=== PATIENT | female | born 1985 | race Caucasian/White ===

== ENCOUNTER → 2017-05-19 | Outpatient (CLI) | payer BC ==
[2015-12-19 15:08] VITALS: BP 153/97
[~2017-05-19] MED LIST: AMOXICILLIN 8751 TAB PO; CLONAZEPAM0.5 MG PO; PORTIA-28 30 MC1 TAB PO; PRILOSEC 20MG20 MG PO; TOPROL XL 50MG50 MG PO
[2017-05-19 17:23] LABS: CLUE CELLS PRESENT (Not Observd)
[2017-05-19 17:31] LABS: URINE APPEARANCE CLEAR; URINE COLOR YELLOW
[2017-05-19 17:32] LABS: URINE BILIRUBIN NEGATIVE (NEGATIVE); URINE BLOOD NEGATIVE (NEGATIVE); URINE GLUCOSE NEGATIVE (NEGATIVE); URINE KETONE NEGATIVE (NEGATIVE); URINE LEUKOCYTE ESTERASE NEGATIVE (NEGATIVE); URINE NITRATE NEGATIVE (NEGATIVE); URINE PROTEIN(semi-quant) NEGATIVE (NEGATIVE); URINE UROBILINOGEN NORMAL (NORMAL); URINE WBC 0-1 /hpf (0-3)
== END ==
LOC: LAB 16:01
PROVIDERS: Nurse Practitioner Family
DX: N76.0 Acute vaginitis (principal); N39.0 Urinary tract infection, site not specified
CPT/HCPCS: Q0111

== ENCOUNTER → 2018-02-02 | Outpatient (CLI) | payer BC ==
[2015-12-19 15:08] VITALS: BP 153/97
== END ==
LOC: RAD 09:58
DX: S62.356A Nondisplaced fracture of shaft of fifth metacarpal bone, right hand, initial encounter for closed fracture (principal)

== ENCOUNTER → 2018-02-05 | Outpatient (CLI) | payer BC ==
[2015-12-19 15:08] VITALS: BP 153/97
[2018-02-05 07:33] LABS: ALBUMIN 4.2 g/dL (3.5-5.0); CALCIUM 9.4 mg/dL (8.4-10.2); POTASSIUM 4.4 mmol/L (3.6-5.0); TOTAL BILIRUBIN 0.6 mg/dL (0.2-1.3); TOTAL PROTEIN 7.9 g/dL (6.3-8.2)
[2018-02-05 08:12] LABS: URINE APPEARANCE CLEAR; URINE BILIRUBIN NEGATIVE (NEGATIVE); URINE BLOOD NEGATIVE (NEGATIVE); URINE COLOR YELLOW; URINE GLUCOSE NEGATIVE (NEGATIVE); URINE KETONE NEGATIVE (NEGATIVE); URINE LEUKOCYTE ESTERASE NEGATIVE (NEGATIVE); URINE MUCUS PRESENT (NOT PRESENT); URINE NITRATE NEGATIVE (NEGATIVE); URINE PROTEIN(semi-quant) NEGATIVE (NEGATIVE); URINE UROBILINOGEN NORMAL (NORMAL); URINE WBC 0-1 /hpf (0-3)
== END ==
LOC: LAB 07:01
PROVIDERS: Family Medicine
DX: Z00.00 Encounter for general adult medical examination without abnormal findings (principal); K59.09 Other constipation

== ENCOUNTER 2018-02-15 10:55 | Emergency (ER) | payer BC ==
[~2018-02-15] VITALS: Ht 157.5 cm; Wt 63.6 kg
[2018-02-15] MEDS ORDERED: NEXIUM20 MG PO (11:00)
[2018-02-15 11:38] LABS: EOS % 0.3 % (1.0-5.0); HEMATOCRIT 41.1 % (37.0-47.0); HEMOGLOBIN 13.1 g/dL (12.5-16.0); LYMPH# 1.9 (1.50-4.00); MEAN CELL VOLUME 91 fl (78-100); MEAN CORPUSCULAR HEMOGLOBIN 29 pg (27-31); MEAN CORPUSCULAR HGB CONC 32 g/dL (33-37); MEAN PLATELET VOLUME 11.1 fl (7.4-10.4); MONO # 0.6 (0.20-0.80); NEU # 4.5 (1.40-6.50); PLATELET COUNT 292 K/mm3 (130-400); RED BLOOD COUNT 4.52 M/mm3 (4.10-5.30); RED CELL DISTRIBUTION WIDTH 12.8 % (11.5-14.5)
[2018-02-15 11:45] LABS: ALBUMIN 4.6 g/dL (3.5-5.0); CALCIUM 9.4 mg/dL (8.4-10.2); POTASSIUM 4.5 mmol/L (3.6-5.0); TOTAL BILIRUBIN 0.6 mg/dL (0.2-1.3); TOTAL PROTEIN 8.1 g/dL (6.3-8.2)
[2018-02-15] MEDS ORDERED: ZOFRAN ODT4 MG PO (13:12)
[2018-02-15] MEDS ORDERED: VALIUM 2MG T2 MG/TAB PO (13:12)
[2018-02-15 14:14] VITALS: BP 123/54
== END 2018-02-15 13:33 | disposition home or self-care (01) ==
LOC: ED 10:55
PROVIDERS: Nurse Practitioner Primary Care
DX: G43.909 Migraine, unspecified, not intractable, without status migrainosus (principal)
CPT/HCPCS: J1885; J2405; J7030

== ENCOUNTER → 2018-04-19 | Outpatient (CLI) | payer BC ==
[~2018-04-19] MED LIST changes: +NEXIUM20 MG PO; +VALIUM 2MG T2 MG/TAB PO; +ZOFRAN ODT4 MG PO
== END ==
LOC: RAD 07:01
DX: R13.10 Dysphagia, unspecified (principal); R14.0 Abdominal distension (gaseous); R14.2 Eructation

== ENCOUNTER → 2018-04-28 | Outpatient (CLI) | payer BC ==
[2018-04-28 15:34] LABS: EOS # 0.1 (0.04-0.40); EOS % 0.7 % (1.0-5.0); HEMATOCRIT 39.5 % (37.0-47.0); HEMOGLOBIN 12.4 g/dL (12.5-16.0); LYMPH# 2.8 (1.50-4.00); MEAN CELL VOLUME 90 fl (78-100); MEAN CORPUSCULAR HEMOGLOBIN 28 pg (27-31); MEAN CORPUSCULAR HGB CONC 31 g/dL (33-37); MONO # 0.7 (0.20-0.80); NEU # 4.6 (1.40-6.50); PLATELET COUNT 268 K/mm3 (130-400); RED BLOOD COUNT 4.39 M/mm3 (4.10-5.30); WHITE BLOOD COUNT 8.1 K/mm3 (4.8-10.8)
== END ==
LOC: LAB 15:12
PROVIDERS: Internal Medicine Gastroenterology
DX: R10.9 Unspecified abdominal pain (principal); R14.0 Abdominal distension (gaseous)

== ENCOUNTER → 2019-03-08 | Outpatient (CLI) | payer BC ==
[2019-03-08 08:58] LABS: EOS # 0.1 (0.04-0.40); EOS % 1.2 % (1.0-5.0); HEMATOCRIT 43.9 % (37.0-47.0); HEMOGLOBIN 13.9 g/dL (12.5-16.0); LYMPH# 2.9 (1.50-4.00); MEAN CELL VOLUME 92 fl (78-100); MEAN CORPUSCULAR HEMOGLOBIN 29 pg (27-31); MEAN CORPUSCULAR HGB CONC 32 g/dL (33-37); MEAN PLATELET VOLUME 11.1 fl (7.4-10.4); MONO # 0.6 (0.20-0.80); NEU # 3.7 (1.40-6.50); PLATELET COUNT 233 K/mm3 (130-400); RED BLOOD COUNT 4.75 M/mm3 (4.10-5.30); RED CELL DISTRIBUTION WIDTH 13.3 % (11.5-14.5); WHITE BLOOD COUNT 7.4 K/mm3 (4.8-10.8)
[2019-03-08 09:13] LABS: ALBUMIN 4.4 g/dL (3.5-5.0); POTASSIUM 3.8 mmol/L (3.5-5.1)
[2019-03-08 09:14] LABS: CALCIUM 9.5 mg/dL (8.3-10.5)
[2019-03-08 09:15] LABS: TOTAL PROTEIN 8.1 g/dL (6.4-8.3)
[2019-03-08 09:17] LABS: TOTAL BILIRUBIN 0.7 mg/dL (0.2-1.2)
[2019-03-08 10:43] LABS: URINE APPEARANCE CLEAR; URINE BILIRUBIN NEGATIVE (NEGATIVE); URINE BLOOD NEGATIVE (NEGATIVE); URINE COLOR YELLOW; URINE GLUCOSE NEGATIVE (NEGATIVE); URINE KETONE NEGATIVE (NEGATIVE); URINE LEUKOCYTE ESTERASE NEGATIVE (NEGATIVE); URINE MUCUS PRESENT (NOT PRESENT); URINE NITRATE NEGATIVE (NEGATIVE); URINE PROTEIN(semi-quant) NEGATIVE (NEGATIVE); URINE UROBILINOGEN NORMAL (NORMAL); URINE WBC 0-1 /hpf (0-3)
== END ==
LOC: LAB 08:24
PROVIDERS: Family Medicine
DX: Z00.00 Encounter for general adult medical examination without abnormal findings (principal); Z13.220 Encounter for screening for lipoid disorders; Z13.29 Encounter for screening for other suspected endocrine disorder

== ENCOUNTER 2019-03-25 11:06 | Emergency (ER) | payer BC ==
[2019-03-25] MEDS ORDERED: MUCINEX DM 60 M1 TER (11:21)
[2019-03-25] MEDS ORDERED: NASACORT A55 MCG/Act NS (11:23)
[2019-03-25 11:48] LABS: EOS % 0.6 % (1.0-5.0); HEMATOCRIT 42.3 % (37.0-47.0); HEMOGLOBIN 13.4 g/dL (12.5-16.0); LYMPH# 1.6 (1.50-4.00); MEAN CELL VOLUME 92 fl (78-100); MEAN CORPUSCULAR HEMOGLOBIN 29 pg (27-31); MEAN CORPUSCULAR HGB CONC 32 g/dL (33-37); MEAN PLATELET VOLUME 10.5 fl (7.4-10.4); MONO # 0.5 (0.20-0.80); NEU # 4.2 (1.40-6.50); PLATELET COUNT 272 K/mm3 (130-400); RED BLOOD COUNT 4.59 M/mm3 (4.10-5.30); RED CELL DISTRIBUTION WIDTH 12.8 % (11.5-14.5); WHITE BLOOD COUNT 6.4 K/mm3 (4.8-10.8)
[2019-03-25 11:57] LABS: ALBUMIN 4.4 g/dL (3.5-5.0); POTASSIUM 3.9 mmol/L (3.5-5.1)
[2019-03-25 11:58] LABS: CALCIUM 9.5 mg/dL (8.3-10.5)
[2019-03-25 12:01] LABS: TOTAL BILIRUBIN 0.4 mg/dL (0.2-1.2)
[2019-03-25] MEDS ORDERED: DIFLUCAN150 M1 PO (13:18)
[2019-03-25] MEDS ORDERED: VIBRAMYCIN HYC100 MG PO (13:18)
[2019-03-25 13:35] VITALS: BP 138/84
== END 2019-03-25 13:35 | disposition home or self-care (01) ==
LOC: ED 11:06
PROVIDERS: Nurse Practitioner Primary Care
DX: J32.9 Chronic sinusitis, unspecified (principal); F43.9 Reaction to severe stress, unspecified

== ENCOUNTER → 2020-05-24 | Outpatient (CLI) | payer BC ==
[~2020-05-24] MED LIST changes: +DIFLUCAN150 M1 PO; +MUCINEX DM 60 M1 TER; +NASACORT A55 MCG/Act NS; +VIBRAMYCIN HYC100 MG PO
== END | disposition still patient (30) ==
LOC: RAD 10:30
DX: R25.2 Cramp and spasm (principal); T14.8XXA Other injury of unspecified body region, initial encounter

== ENCOUNTER → 2020-10-05 | Outpatient (CLI) | payer BC ==
[2020-10-05 12:28] LABS: BASO # 0.03 (0.02-0.10); EOS # 0.05 (0.04-0.40); EOS % 0.6 % (1.0-5.0); HEMATOCRIT 42.3 % (37.0-47.0); HEMOGLOBIN 13.7 g/dL (12.5-16.0); LYMPH# 1.71 (1.50-4.00); MEAN CELL VOLUME 94 fl (78-100); MEAN CORPUSCULAR HEMOGLOBIN 30 pg (27-31); MEAN CORPUSCULAR HGB CONC 32 g/dL (33-37); MEAN PLATELET VOLUME 10.7 fl (7.4-10.4); MONO # 0.64 (0.20-0.80); PLATELET COUNT 238 K/mm3 (130-400); RED BLOOD COUNT 4.51 M/mm3 (4.10-5.30); RED CELL DISTRIBUTION WIDTH 12.2 % (11.5-14.5); WHITE BLOOD COUNT 7.9 K/mm3 (4.8-10.8)
[2020-10-05 12:40] LABS: ALBUMIN 4.1 g/dL (3.5-5.0)
[2020-10-05 12:41] LABS: POTASSIUM 4.6 mmol/L (3.5-5.1)
[2020-10-05 12:42] LABS: CALCIUM 9.2 mg/dL (8.3-10.5)
[2020-10-05 12:43] LABS: TOTAL PROTEIN 7.8 g/dL (6.4-8.3)
[2020-10-05 12:45] LABS: TOTAL BILIRUBIN 0.5 mg/dL (0.2-1.2)
== END ==
LOC: LAB 12:15
PROVIDERS: Nurse Practitioner
DX: K57.90 Diverticulosis of intestine, part unspecified, without perforation or abscess without bleeding (principal)
CPT/HCPCS: Q9967

== ENCOUNTER → 2020-11-08 | Day surgery (SDC) | payer BC | END | disposition home or self-care (01) | LOC: MSO 08:17 | DX: K57.30 Diverticulosis of large intestine without perforation or abscess without bleeding (principal); Z87.19 Personal history of other diseases of the digestive system | CPT/HCPCS: 00812; J2704; J7120 ==

== ENCOUNTER → 2021-07-17 | Outpatient (CLI) | payer BC ==
[2021-07-17 17:46] LABS: BASO # 0.04 K/mm3 (0.02-0.10); EOS # 0.09 K/mm3 (0.04-0.40); EOS % 1.2 % (1.0-5.0); HEMATOCRIT 44.2 % (37.0-47.0); HEMOGLOBIN 14.2 g/dL (12.5-16.0); LYMPH# 2.71 K/mm3 (1.50-4.00); MEAN CELL VOLUME 94 fl (78-100); MEAN CORPUSCULAR HEMOGLOBIN 30 pg (27-31); MEAN CORPUSCULAR HGB CONC 32 g/dL (33-37); MEAN PLATELET VOLUME 10.8 fl (7.4-10.4); MONO # 0.68 K/mm3 (0.20-0.80); NEU # 4.14 K/mm3 (1.40-6.50); PLATELET COUNT 269 K/mm3 (130-400); RED BLOOD COUNT 4.69 M/mm3 (4.10-5.30); RED CELL DISTRIBUTION WIDTH 12.2 % (11.5-14.5); WHITE BLOOD COUNT 7.7 K/mm3 (4.8-10.8)
[2021-07-17 17:52] LABS: URINE APPEARANCE CLEAR; URINE BILIRUBIN NEGATIVE (NEGATIVE); URINE BLOOD NEGATIVE (NEGATIVE); URINE COLOR YELLOW; URINE GLUCOSE NEGATIVE (NEGATIVE); URINE KETONE NEGATIVE (NEGATIVE); URINE NITRATE NEGATIVE (NEGATIVE); URINE PROTEIN(semi-quant) TRACE (NEGATIVE); URINE UROBILINOGEN NORMAL (NORMAL)
[2021-07-17 17:53] LABS: URINE LEUKOCYTE ESTERASE TRACE (NEGATIVE); URINE MUCUS PRESENT (NOT PRESENT)
[2021-07-17 18:03] LABS: ALBUMIN 4.8 g/dL (3.5-5.0); POTASSIUM 4.1 mmol/L (3.5-5.1); SODIUM 138 mmol/L (136-145)
[2021-07-17 18:05] LABS: CALCIUM 9.9 mg/dL (8.3-10.5)
[2021-07-17 18:06] LABS: GLUCOSE 80 mg/dL (65-105); TOTAL PROTEIN 8.7 g/dL (6.4-8.3)
[2021-07-17 18:07] LABS: CARBON DIOXIDE 20 mmol/L (22-29)
[2021-07-17 18:08] LABS: TOTAL BILIRUBIN 0.2 mg/dL (0.2-1.2)
[2021-07-17 18:11] LABS: AST-SGOT 24 U/L (5-34)
[2021-07-17 18:12] LABS: ALT/SGPT 19 U/L (0-55)
[2021-07-17 19:12] LABS: CLUE CELLS PRESENT (Not Observd)
== END ==
LOC: LAB 17:05
PROVIDERS: Nurse Practitioner Family
DX: R10.9 Unspecified abdominal pain (principal)
CPT/HCPCS: Q0111; Q9967

== ENCOUNTER → 2022-04-30 | Outpatient (CLI) | payer BC ==
[2022-04-30 15:19] LABS: BASO # 0.04 K/mm3 (0.02-0.10); EOS # 0.08 K/mm3 (0.04-0.40); EOS % 1.1 % (1.0-5.0); HEMATOCRIT 41.7 % (37.0-47.0); HEMOGLOBIN 13.2 g/dL (12.5-16.0); LYMPH# 2.29 K/mm3 (1.50-4.00); MEAN CELL VOLUME 97 fl (78-100); MEAN CORPUSCULAR HEMOGLOBIN 31 pg (27-31); MEAN CORPUSCULAR HGB CONC 32 g/dL (33-37); MEAN PLATELET VOLUME 10.7 fl (7.4-10.4); MONO # 0.57 K/mm3 (0.20-0.80); NEU # 4.55 K/mm3 (1.40-6.50); PLATELET COUNT 253 K/mm3 (130-400); RED BLOOD COUNT 4.28 M/mm3 (4.10-5.30); WHITE BLOOD COUNT 7.5 K/mm3 (4.8-10.8)
[2022-04-30 15:23] LABS: ALBUMIN 4.3 g/dL (3.5-5.0); POTASSIUM 4.2 mmol/L (3.5-5.1); SODIUM 138 mmol/L (136-145)
[2022-04-30 15:24] LABS: CALCIUM 9.4 mg/dL (8.3-10.5)
[2022-04-30 15:25] LABS: GLUCOSE 88 mg/dL (65-105)
[2022-04-30 15:26] LABS: TOTAL PROTEIN 7.8 g/dL (6.4-8.3); URINE APPEARANCE CLEAR; URINE BILIRUBIN NEGATIVE (NEGATIVE); URINE BLOOD NEGATIVE (NEGATIVE); URINE COLOR YELLOW; URINE GLUCOSE NEGATIVE (NEGATIVE); URINE KETONE NEGATIVE (NEGATIVE); URINE LEUKOCYTE ESTERASE NEGATIVE (NEGATIVE); URINE MUCUS PRESENT (NOT PRESENT); URINE NITRATE NEGATIVE (NEGATIVE); URINE PROTEIN(semi-quant) TRACE (NEGATIVE); URINE UROBILINOGEN NORMAL (NORMAL); URINE WBC 0-1 /hpf (0-3)
[2022-04-30 15:27] LABS: CARBON DIOXIDE 24 mmol/L (22-29); TOTAL BILIRUBIN 0.3 mg/dL (0.2-1.2)
[2022-04-30 15:31] LABS: AST-SGOT 18 U/L (5-34)
[2022-04-30 15:32] LABS: ALT/SGPT 19 U/L (0-55)
[2022-04-30 15:33] LABS: LIPASE 21 U/L (8-78)
[2022-04-30 16:29] LABS: ERYTHROCYTE SEDIMENTATION RATE 3 mm/hr (0-20)
== END ==
LOC: LAB 14:54
PROVIDERS: Nurse Practitioner
DX: R10.32 Left lower quadrant pain (principal); Z87.19 Personal history of other diseases of the digestive system

== ENCOUNTER → 2023-06-09 | Outpatient (CLI) | payer BC ==
[~2023-06-09] MED LIST changes: +BENEFIBER1 EACH PO; +ELIQUIS5 MG PO
[2023-06-09 11:41] LABS: BASO # 0.04 K/mm3 (0.02-0.10); EOS # 0.06 K/mm3 (0.04-0.40); EOS % 1.1 % (1.0-5.0); HEMATOCRIT 35.6 % (37.0-47.0); HEMOGLOBIN 10.3 g/dL (12.5-16.0); LYMPH# 2.28 K/mm3 (1.50-4.00); MEAN CELL VOLUME 76 fl (78-100); MEAN CORPUSCULAR HEMOGLOBIN 22 pg (27-31); MEAN CORPUSCULAR HGB CONC 29 g/dL (33-37); MEAN PLATELET VOLUME 10.6 fl (7.4-10.4); MONO # 0.52 K/mm3 (0.20-0.80); NEU # 2.46 K/mm3 (1.40-6.50); PLATELET COUNT 348 K/mm3 (130-400); RED BLOOD COUNT 4.66 M/mm3 (4.10-5.30); RED CELL DISTRIBUTION WIDTH 17.7 % (11.5-14.5); WHITE BLOOD COUNT 5.4 K/mm3 (4.8-10.8)
== END ==
LOC: LAB 11:07
PROVIDERS: Family Medicine
DX: E78.5 Hyperlipidemia, unspecified (principal); D50.9 Iron deficiency anemia, unspecified; R73.9 Hyperglycemia, unspecified